=== PATIENT | male | born 1960 | race Caucasian/White ===

== ENCOUNTER → 2021-06-27 | Outpatient (CLI) | payer OTHER, SELFPAY ==
--- NOTE | 2021-06-27 10:10 | RAD_ITS ---
STUDY: X-RAY - RIGHT WRIST REASON FOR EXAM: Male, 61 years old. Right wrist fracture. Pain. TECHNIQUE: 2 view(s) of the wrist were obtained. COMPARISON: None. FINDINGS: Deformity of the distal ulna with pin track from prior injury. Mild arthrosis of the radiocarpal articulation. Normal distal radioulnar articulation. Normal carpal bones. Normal carpal articulations. Normal carpometacarpal articulation of the thumb. Normal second through fifth carpometacarpal articulations. Normal visualized metacarpal bones. The soft tissue structures are unremarkable. RAD/Wrist 2 Views IMPRESSION: Deformity of the distal ulna from prior injury. No acute abnormality. Electronically Signed: Marvel Lau MD at 10:41 EDT ,
== END | disposition home or self-care (01) ==
LOC: RAD 10:06
DX: S62.101A Fracture of unspecified carpal bone, right wrist, initial encounter for closed fracture (principal)
CPT/HCPCS: 73100